=== PATIENT | female | born 1945 | race Caucasian/White ===

== ENCOUNTER 2020-11-27 10:55 | Emergency (ER) | payer MEDICARE ==
[2020-11-27] MEDS ORDERED: Diphenoxylate HCl/Atropine Tablet ONE (11:39)
[2020-11-27] MEDS ORDERED: Sodium Chloride 0.9% 1,000 ML ONE (11:40)
[2020-11-27] MEDS ORDERED: Ondansetron PF 4 MG/2 ML Vial ONE (11:40)
[2020-11-27 12:04] LABS: Hemoglobin 13.3 g/dL (12.0-16.0); Mean Corpuscular HGB CONC 31.4 g/dL (32.0-36.0); Mean Corpuscular Hemoglobin 27.6 pg (27.0-31.0); Mean Corpuscular Volume 87.9 fL (78.0-98.0); Mean Platelet Volume 8.2 fL (7.4-10.4); Platelet Count 184 thou/uL (130-400); RBC Distribution Width 12.3 % (11.5-14.5); Red Blood Cell (RBC) Count 4.83 mill/uL (4.20-5.40); White Blood Cell (WBC) Count 4.5 thou/uL (4.8-10.8)
[2020-11-27 12:11] LABS: ALT (SGPT) 27 U/L (8-55); AST (SGOT) 33 U/L (5-34); Alkaline Phosphatase 62 U/L (40-110); Anion Gap 18 mmol/L (10-20); BUN (Urea Nitrogen) 21 mg/dL (9.8-20.1); Bilirubin, Total 0.6 mg/dL (0.2-1.2); Calc. Creatinine Clearance 0 mL/min (70-130); Calcium 9.2 mg/dL (7.8-10.44); Carbon Dioxide 20 mmol/L (23-31); Chloride 101 mmol/L (98-107); Globulin 2.9 g/dL (2.4-3.5); Glucose 137 mg/dL (83-110); Potassium 3.8 mmol/L (3.5-5.1); Protein, Total 6.9 g/dL (5.8-8.1); Sodium 135 mmol/L (136-145)
[2020-11-27 12:20] LABS: Band 8 % (5-11); Lymphocytes 25 % (21-51); MDiff Complete? YES; Manual Diff?? YES; Neutrophil 60 % (42-75)
[2020-11-27 12:21] LABS: Anisocytosis SLIGHT = 6-15 cells (100X) (0-5/hpf); Monocytes 7 % (0-10); Platelet Morphology Comment Appears Adequate
[2020-11-27] MEDS ORDERED: metroNIDAZOLE 250 MG TAB ONE (12:43)
== END 2020-11-27 12:56 | disposition home or self-care (01) ==
LOC: MADERS 10:55
DX: K52.9 Noninfective gastroenteritis and colitis, unspecified (principal); I10 Essential (primary) hypertension
CPT/HCPCS: 80053; 85025; 96374; J2405; J7050

== ENCOUNTER 2025-01-05 08:29 | Outpatient (CLI) | payer MEDICARE ==
[2025-01-05 08:55] LABS: Hematocrit 41.6 % (36.0-47.0); Hemoglobin 13.3 g/dL (12.0-16.0); Mean Corpuscular Hemoglobin 28.9 pg (27.0-31.0); Mean Corpuscular Volume 90.4 fl (78.0-98.0); Mean Platelet Volume 8.5 fL (7.4-10.4); Platelet Count 199 10x3/uL (130-400); RBC Distribution Width 18.4 % (11.5-14.5); White Blood Cell (WBC) Count 5.4 10x3/uL (4.8-10.8)
[2025-01-05 08:59] LABS: ALT (SGPT) 25 U/L (Less than 34); AST (SGOT) 32 U/L (11-34); Albumin 4.1 g/dL (3.1-4.5); Alkaline Phosphatase 60 U/L (40-110); Anion Gap 12 mmol/L (10-20); BUN (Urea Nitrogen) 20 mg/dL (9.8-20.1); Bilirubin, Total 0.5 mg/dL (0.3-1.2); Calc. Creatinine Clearance 0 mL/min (70-130); Calcium 9.7 mg/dL (7.8-10.44); Carbon Dioxide 27 mmol/L (23-31); Chloride 105 mmol/L (98-107); Estimated GFR 49; Globulin 2.9 g/dL (2.4-3.5); Glucose 137 mg/dL (83-110); Potassium 4.4 mmol/L (3.5-5.1); Sodium 140 mmol/L (136-145)
[2025-01-05] MEDS ORDERED: Iopamidol 370 76% 100 ML VIAL ONE (09:00)
[2025-01-05 09:04] LABS: MDiff Complete? YES; Manual Diff?? YES
[2025-01-05 09:05] LABS: Band 2 % (5-11); Eosinophils 1 % (0-10); Lymphocytes 33 % (21-51); Monocytes 10 % (0-10); Neutrophil 54 % (42-75); Platelet Adequacy Comment Appears Adequate; RBC Morph Comment Within Normal Limits
[2025-01-05 16:48] LABS: Iron 120 ug/dL (50-170); Iron Binding Capacity, Total 373 mcg/dL (265-497)
== END 2025-01-05 08:30 | disposition home or self-care (01) ==
LOC: MADCT 08:29
PROVIDERS: ATTEND Internal Medicine
DX: C17.9 Malignant neoplasm of small intestine, unspecified (principal); D50.8 Other iron deficiency anemias
CPT/HCPCS: 36415; 71260; 74177; 80053; 82728; 83540; 83550; 85025; 86316; Q9967

== ENCOUNTER 2025-07-13 09:27 | Outpatient (CLI) | payer MEDICARE ==
[2025-07-13 10:26] LABS: ALT (SGPT) 15 U/L (Less than 34); AST (SGOT) 27 U/L (11-34); Albumin 3.9 g/dL (3.1-4.5); Alkaline Phosphatase 54 U/L (40-110); Anion Gap 14 mmol/L (10-20); BUN (Urea Nitrogen) 28 mg/dL (9.8-20.1); Bilirubin, Total 0.6 mg/dL (0.3-1.2); Calc. Creatinine Clearance 0 mL/min (70-130); Calcium 9.2 mg/dL (7.8-10.44); Carbon Dioxide 25 mmol/L (23-31); Chloride 107 mmol/L (98-107); Globulin 2.8 g/dL (2.4-3.5); Glucose 127 mg/dL (83-110); Potassium 4.7 mmol/L (3.5-5.1); Sodium 141 mmol/L (136-145)
[2025-07-13 10:42] LABS: Hematocrit 37.6 % (36.0-47.0); Hemoglobin 12.1 g/dL (12.0-16.0); Mean Corpuscular Hemoglobin 29.9 pg (27.0-31.0); Mean Corpuscular Volume 93.3 fl (78.0-98.0); Platelet Count 169 10x3/uL (130-400); Red Blood Cell (RBC) Count 4.04 mill/uL (4.20-5.40); White Blood Cell (WBC) Count 3.9 10x3/uL (4.8-10.8)
[2025-07-13 10:43] LABS: MDiff Complete? YES; Manual Diff?? YES
[2025-07-13 10:44] LABS: Platelet Adequacy Comment Appears Adequate
[2025-07-13 16:55] LABS: Iron 125 ug/dL (50-170); Iron Binding Capacity, Total 366 mcg/dL (265-497)
== END 2025-07-13 09:28 | disposition home or self-care (01) ==
LOC: MADRAD 09:27
PROVIDERS: ATTEND Internal Medicine
DX: C7A.019 Malignant carcinoid tumor of the small intestine, unspecified portion (principal); D50.8 Other iron deficiency anemias
CPT/HCPCS: 36415; 74177; 80053; 82728; 83540; 83550; 85025; 86316